=== PATIENT | male | born 1970 | race Two or more races ===

== ENCOUNTER 2017-06-16 14:53 | Emergency (ER) | payer SELFPAY ==
[~2017-06-16] VITALS: Ht 177.8 cm; Wt 83.9 kg
--- NOTE | 2017-06-16 16:09 | NUR ---
DR RIVERA AT BEDSIDE FOR EVAL.
--- NOTE | 2017-06-16 16:34 | NUR ---
PT IS AAOX3, AMBULATORY W/ STEADY GAIT. Patient does not wish to proceed with medical care recommended by Dr. Maldonado. Patient given information related to possible complications, up to and including , which could occur as a result of leaving the hospital at this time. Patient verbalizes understanding of risks involved due to leaving against medical advice. Patient has signed AMA form.
[2017-06-16 16:35] VITALS: BP 132/74
== END 2017-06-16 16:37 | disposition left against medical advice (07) ==
LOC: EDSEX 14:54 → ER 14:54
DX: T40.601A Poisoning by unspecified narcotics, accidental (unintentional), initial encounter (principal); Z53.20 Procedure and treatment not carried out because of patient's decision for unspecified reasons; B19.20 Unspecified viral hepatitis C without hepatic coma; Y92.481 Parking lot as the place of occurrence of the external cause
CPT/HCPCS: 80305; A4606; Z7610